=== PATIENT | female | born 1955 | race Two or more races ===

== ENCOUNTER 2020-10-13 00:25 | Emergency (ER) | payer MEDICAID ==
[~2020-10-13] VITALS: Ht 162.6 cm; Wt 65.8 kg
[2020-10-13 00:25] VITALS: BP 164/93
[~2020-10-13 00:25] MED LIST: NO REPORTED MEDS
== END 2020-10-13 01:15 | disposition home or self-care (01) ==
LOC: ER 00:26
DX: S00.83XA Contusion of other part of head, initial encounter (principal); S60.211A Contusion of right wrist, initial encounter; R51.9 Headache, unspecified; I10 Essential (primary) hypertension; W18.09XA Striking against other object with subsequent fall, initial encounter; Y93.89 Activity, other specified; Y92.89 Other specified places as the place of occurrence of the external cause; Y99.8 Other external cause status
CPT/HCPCS: 70450-TC; 73110; 73630-TC